=== PATIENT | female | born 1990 | race Hispanic/Latino ===

== ENCOUNTER 2021-08-18 11:35 | Emergency (ER) | payer BC, SELFPAY ==
[2021-08-18 11:37] VITALS: BP 133/94; PULSE 79; RESP 17; TEMP 36.6; O2SAT 99
--- NOTE | 2021-08-18 12:39 | ED.FEMALEGU ---
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 Patient states that she has had milky white foul-smelling vaginal discharge for 3 days accompanied with pelvic discomfort. Denies dysuria or abdominal pain. Denies fever. Denies back pain. Last menstrual cycle was August 01, she relates to having 2 over the last month. No concerns over STDs. Related Data Allergies Allergy/AdvReac Type Severity Reaction Status Date / Time No Known Allergies Allergy Verified 08/18/21 11:41 Review of Systems Review of Systems: CONSTITUTIONAL: Denies fever, chills, or sweats. EYES: Denies visual changes, redness, or discharge. ENT: Denies rhinorrhea, congestion, sore throat, or otalgia. CARDIOVASCULAR: Denies chest pain, palpitations, or edema. RESPIRATORY: Denies cough or dyspnea. GASTROINTESTINAL: Denies abdominal pain, nausea, vomiting, or diarrhea. GENITOURINARY: Reports vaginal discharge SKIN: Denies rash or itching. MUSCULOSKELETAL: Denies back pain, joint pain, or myalgia. NEUROLOGIC: Denies headache, numbness, dizziness, or weakness. PSYCHIATRIC: Denies anxiety or depression. Exam Narrative: GENERAL: Well-appearing, well-nourished, no physical limitations, and in no acute distress. HEAD: Normocephalic, atraumatic. EYES: Conjunctivae normal, PERRLA and EOMI. CHEST: Clear to auscultation. No respiratory distress. No wheezes rales or rhonchi. No tenderness. HEART: Regular rate and rhythm. No murmur heard. Normal peripheral pulses. ABDOMEN: Soft, , nondistended, normal active bowel sounds. : Normal external female exam, lesions masses or rashes on the external exam. Moderate amount of milky white discharge. Cervical os is closed. No adnexal tenderness, no cervical motion tenderness BACK: No CVA tenderness; No cervical/thoracic/lumbar tenderness, step-offs, bony abnormality; FROM EXTREMITIES: Normal range of motion. No edema. No clubbing or cyanosis SKIN: Warm, dry, no rash. No noted wounds NEURO: No focal deficits. Alert and oriented x3. MAEW. CN's II-XI intact bilaterally, normal gait PSYCH: Cooperative. Normal mood and affect. Course Vital Signs Vital signs: Vital Signs Temperature 36.6 C 08/18/21 11:37 Pulse Rate 79 08/18/21 11:37 Respiratory Rate 17 08/18/21 11:37 Blood Pressure 133/94 H 08/18/21 11:37 Pulse Oximetry 99 08/18/21 11:37 Oxygen Delivery Room Air 08/18/21 11:37 Temperature 36.6 C 08/18/21 11:37 Pulse Rate 79 08/18/21 11:37 Respiratory Rate 17 08/18/21 11:37 Blood Pressure 133/94 H 08/18/21 11:37 Pulse Oximetry 99 08/18/21 11:37 Oxygen Delivery Room Air 08/18/21 11:37 MDM - Female Genitourinary Lab Data Result diagrams: 08/18/21 12:49 Labs: Lab Results 08/18/21 08/18/21 Range/Units 12:45 12:49 WBC 9.8 (4.5-10.0) K/mm3 RBC 4.88 (4.2-5.4) M/mm3 Hgb 14.3 (12.0-15.0) g/dL Hct 43.9 (37.0-47.0) % MCV 90.0 (80-100) fl MCH 29.3 (26-34) pg MCHC 32.6 (32-36) g/dl RDW 13.0 (11.5-14.5) % Plt Count 332 (150-375) k/mm3 MPV 11.0 H (7.4-10.4) fl Immature Gran % (Auto) 0.4 (0-0.5) % Neut % (Auto) 67.0 (45.5-73.1) % Lymph % (Auto) 20.4 (18.3-44.2) % [place] % (Auto) 8.2 (2.6-8.5) % Eos % (Auto) 3.3 (0-4.4) % Baso % (Auto) 0.7 (0.2-1.2) % Lymph # (Auto) 1.99 (0.9-3.2) K/mm3 [place] # (Auto) 0.8 H (0.1-0.6) K/mm3 Eos # (Auto) 0.3 (0-0.3) K/mm3 Baso # (Auto) 0.1 (0.0-0.1) K/mm3 Abs Immat Gran (auto) 0.04 H (0.00-0.031) K/mm3 Absolute Neuts (auto) 6.5 (1.3-6.7) K/mm3 Absolute Nucleated RBC 0.0 (0.0-0.012) K/mm3 Nucleated RBC % 0.0 (0.0-0.2) % Urine Color Yellow (Yellow) Urine Appearance Clear (Clear) Urine pH
[2021-08-18 13:11] LABS: Basophils Absolute Auto 0.1 K/mm3 (0.0-0.1); Basophils Percent Auto 0.7 % (0.2-1.2); Eosinophils Absolute Auto 0.3 K/mm3 (0-0.3); Eosinophils Percent Auto 3.3 % (0-4.4); Hematocrit 43.9 % (37.0-47.0); Hemoglobin 14.3 g/dL (12.0-15.0); Immature Granulocyte Absolute 0.04 K/mm3 (0.00-0.031); Immature Granulocyte Percent A 0.4 % (0-0.5); Lymphocytes Absolute Auto 1.99 K/mm3 (0.9-3.2); Lymphocytes Percent Auto 20.4 % (18.3-44.2); Mean Corpuscular HGB Conc 32.6 g/dl (32-36); Mean Corpuscular Hemoglobin 29.3 pg (26-34); Monocytes Absolute Auto 0.8 K/mm3 (0.1-0.6); Monocytes Percent Auto 8.2 % (2.6-8.5); Neutrophils Absolute Auto 6.5 K/mm3 (1.3-6.7); Platelet Count Result 332 k/mm3 (150-375); Red Blood Count 4.88 M/mm3 (4.2-5.4); White Blood Count 9.8 K/mm3 (4.5-10.0)
[2021-08-18 13:17] LABS: Add Urine Microscopic? NO; Appearance Urine Clear (Clear); Bilirubin Urine Negative (Negative); Blood Urine Negative (Negative); Color Urine Yellow (Yellow); Glucose Urine UA Negative (Negative); Ketones Urine Negative (Negative); Leukocyte Esterase Ur Negative LEU/UL (Negative); Nitrate Urine Negative (Negative); Protein Urine Negative (Negative); Specific Grav Ur 1.025 (1.001-1.035); Urobilinogen Urine 0.2 mg/dL (<2.0); pH Urine 5.5 (5.0-9.0)
--- NOTE | 2021-08-18 13:44 | PC.NURSE ---
insurance writer accompanied provider with pelvic exam
[2021-08-18 14:23] VITALS: PULSE 74; RESP 16; O2SAT 99
== END 2021-08-18 14:24 | disposition home or self-care (01) ==
PROVIDERS: Emergency Provider Nurse Practitioner Family
DX: N76.0 Acute vaginitis (principal)
CPT/HCPCS: 36415; 81003; 85025; 87070; 87491; 87591; 87808; 99284

== ENCOUNTER 2021-10-31 16:08 | Observation (INO) | payer BC, SELFPAY ==
[2021-10-31] VITALS (19 sets, daily range): BP systolic 124–139; BP diastolic 80–93; PULSE 78–123; RESP 14–19; TEMP 36.8–36.9; O2SAT 99–100
--- NOTE | ~2021-10-31 | US_ITS ---
US OB <= 14 weeks fetus DATE: 10/31/2021 21:12 INDICATION: Vaginal bleeding, spontaneous at 10 weeks TECHNIQUE: Real-time and color flow imaging via transabdominal approach COMPARISON: None FINDINGS: The uterus measures approximately 7.8 cm vertical and 5 cm AP dimension. The central endome trial echo complex measures up to 16 mm AP dimension, with prominent surrounding hyper vascularity on color flow imaging. No gestational sac is identified. Findings are consistent with retained products of conception. The ovaries appear normal, with vascular flow. No pelvic mass lesion or abnormal free pelvic fluid collection is noted. IMPRESSION: Retained products of conception Reviewed, dictated and finalized at [facility]. Reviewed, dictated and finalized at [facility].
--- NOTE | 2021-10-31 18:56 | ED.FEMALEGU ---
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 Patient is a . She does not have an OB currently. Reports she was about 10 weeks and started bleeding. She was seen at [facility] Tuesday of this week. She was told she was having a miscarriage. Reports she was given a pill to expel the rest of the products of conception. She presents today for continued bleeding. Denies fever or vomiting. Related Data Home Medications Medication Instructions Recorded Confirmed No Home Medications 11/01/21 11/01/21 Allergies Allergy/AdvReac Type Severity Reaction Status Date / Time No Known Allergies Allergy Verified 08/18/21 11:41 Review of Systems Review of Systems: CONSTITUTIONAL: Denies fever GASTROINTESTINAL: Denies vomiting GENITOURINARY: Denies dysuria NEUROLOGIC: Reports generalized weakness. All systems reviewed & are unremarkable except as noted in HPI and below PMFSH Past Medical History Medical History (Updated 11/01/21 @ 14:36 by Ce Meza MD) No active medical problems Family History Family History (Updated 11/01/21 @ 01:09 by Gloria Osman RN) Other Unknown family medical history Social History Social History (Updated 10/31/21 @ 19:02 by Brissa Vann PA-C) Smoking status: Never smoker Alcohol intake: never Substance use: unknown Spiritual care concerns: No Exam Narrative: GENERAL: Well-appearing, well-nourished, and in no acute distress. HEAD: Normocephalic, atraumatic. EYES: EOMI. ENT: Nares clear, no rhinorrhea or epistaxis. Mucous membranes moist. Oropharynx without tonsillar hypertrophy exudate or other lesions. CHEST: Clear to auscultation. No respiratory distress. No wheezes rales or rhonchi HEART: Regular rate and rhythm. No murmur heard. Normal peripheral pulses. ABDOMEN: Soft, nontender, nondistended, normal active bowel sounds. EXTREMITIES: Normal range of motion. No edema. SKIN: Warm, dry, no rash. NEURO: No focal deficits. Alert and oriented x3. PSYCH: Normal mood and affect PELVIC: There is tissue noted in the vaginal vault. This was removed with ring forceps. Small amount of bleeding noted in the vaginal vault. Cervix is open. Course Consultations Consultation #1: Spoke with Dr. Powell about patient and work-up. Patient will be admitted for further evaluation and management Date: 10/31/21 Vital Signs Vital signs: Vital Signs Temperature 98.2 F 10/31/21 16:10 Pulse Rate 123 H 10/31/21 16:10 Respiratory Rate 16 10/31/21 16:10 Blood Pressure 129/88 10/31/21 16:10 Pulse Oximetry 100 10/31/21 16:10 Oxygen Delivery Room Air 10/31/21 16:10 Temperature 97.8 F 11/01/21 18:05 Pulse Rate 76 11/01/21 18:05 Respiratory Rate 16 11/01/21 18:05 Blood Pressure 134/90 11/01/21 18:05 Pulse Oximetry 100 11/01/21 18:05 Oxygen Delivery Room Air 11/01/21 15:22 MDM - Female Genitourinary MDM Narrative Medical decision making narrative: Patient presents to the emergency department for continued bleeding and generalized weakness. Reportedly was seen earlier in the week at another ER. Was told she was having a miscarriage and said she was given a pill to expel products of conception. She has had heavy bleeding since. Reports she started to feel weak and lightheaded which prompted her to be seen. Her vitals are stable. She was tachycardic upon arrival, this had normalized before any intervention. CBC shows normocytic anemia with hemoglobin of 5.4 and hematocrit of 16.7. Metabolic panel without concerning findings. UA without evidence of infection. Patient is O+.
[2021-10-31 19:29] LABS: Appearance Urine Slightly Cloudy (Clear); Basophils Percent Auto 0.6 % (0.2-1.2); Bilirubin Urine Negative (Negative); Blood Urine 2+ (Negative); Color Urine Yellow (Yellow); Eosinophils Absolute Auto 0.1 K/mm3 (0-0.3); Eosinophils Percent Auto 1.8 % (0-4.4); Glucose Urine UA Negative (Negative); Immature Granulocyte Absolute 0.02 K/mm3 (0.00-0.031); Immature Granulocyte Percent A 0.3 % (0-0.5); Ketones Urine Negative (Negative); Leukocyte Esterase Ur Negative LEU/UL (Negative); Lymphocytes Absolute Auto 2.01 K/mm3 (0.9-3.2); Lymphocytes Percent Auto 28.4 % (18.3-44.2); Mean Corpuscular HGB Conc 32.3 g/dl (32-36); Mean Corpuscular Hemoglobin 30.2 pg (26-34); Mean Corpuscular Volume 93.3 fl (80-100); Mean Platelet Volume 10.5 fl (7.4-10.4); Monocytes Absolute Auto 0.4 K/mm3 (0.1-0.6); Monocytes Percent Auto 5.9 % (2.6-8.5); Neutrophils Absolute Auto 4.5 K/mm3 (1.3-6.7); Nitrate Urine Negative (Negative); Platelet Count Result 166 k/mm3 (150-375); Protein Urine Negative (Negative); Red Blood Count 1.79 M/mm3 (4.2-5.4); Red Cell Distribution Width 13.5 % (11.5-14.5); Specific Grav Ur >= 1.030 (1.001-1.035); Urobilinogen Urine 0.2 mg/dL (<2.0); White Blood Count 7.1 K/mm3 (4.5-10.0)
[2021-10-31 19:34] LABS: Mucus Urine Rare /lpf; RBC Urine >75 /hpf (0-2); Squamous Epithelial Cell Urine Moderate /hpf (Few); WBC Urine 0-3 /hpf
[2021-10-31 19:35] LABS: Hemoglobin 5.4 g/dL (12.0-15.0)
[2021-10-31 19:36] LABS: Add Urine Microscopic? YES; Hematocrit 16.7 % (37.0-47.0)
[2021-10-31 19:44] LABS: Alanine Aminotransferase 14 U/L (6-35); Alkaline Phosphatase 60 U/L (38-126); Anion Gap 5 mmol/L (8-16); Aspartate Amino Transferase 19 U/L (14-36); Bilirubin,Total < 0.1 mg/dL (0.2-1.3); Blood Urea Nitrogen 14 mg/dL (7-17); Calcium 7.6 mg/dL (8.4-10.2); Carbon Dioxide 26 mmol/L (22-30); Chloride 106 mmol/L (98-107); Estimated CRCL calculation 102 ml/min; Estimated Glomerular Filt Rate > 60; Glucose 104 mg/dL (65-110); Potassium 3.7 mmol/L (3.4-5.0); Sodium 137 mmol/L (137-145)
--- NOTE | 2021-10-31 20:11 | PC.NURSE ---
Patient states she is unsure of how far along she was, she states she is between 10-15 weeks
--- NOTE | 2021-10-31 21:39 | PC.NURSE ---
blood consent signed and in chart
[2021-10-31] MEDS: SODIUM CHLORIDE 0.9% IV 250 ML 30 ML IV CONT (21:40)
--- NOTE | 2021-10-31 21:59 | PC.NURSE ---
patient states she is feeling better at this time.
--- NOTE | 2021-10-31 23:51 | PC.NURSE ---
Per pt's RN, family wants hospital to dispose of products of conception. Visualization Developer called @ [phone]. MTS called @ [phone]. Reference # [id number].
[2021-11-01] VITALS (21 sets, daily range): BP systolic 117–137; BP diastolic 64–90; PULSE 66–98; RESP 15–20; TEMP 36.4–37.2; O2SAT 98–100; BMI 26.0
--- NOTE | 2021-11-01 | ADMGEN ---
This patient, Chris Kat, was admitted to 2 Medical Room 256-. Patient/family oriented to hospital policies and general routines including ID bracelet, bed and alarms, visiting hours, pain management, procedures, bathroom and other care routines, personal items, smoking policy, room service/diet, and visiting hours. Information on how to activate the Rapid Response Team has been discussed. Patient/Family are encouraged to report perceived risks to care and to ask questions if they do not understand what they are told or what they should do.
--- NOTE | 2021-11-01 00:17 | PC.NURSE ---
Patient stated she wanted the hospital to dispose of all products. In Store Marketing Associate was in use at this time. Patient signed paperwork for [employer] and wants to be contacted.
[2021-11-01 04:29] LABS: Basophils Absolute Auto 0.1 K/mm3 (0.0-0.1); Basophils Percent Auto 0.8 % (0.2-1.2); Eosinophils Absolute Auto 0.2 K/mm3 (0-0.3); Hematocrit 22.5 % (37.0-47.0); Hemoglobin 7.4 g/dL (12.0-15.0); Immature Granulocyte Absolute 0.03 K/mm3 (0.00-0.031); Immature Granulocyte Percent A 0.5 % (0-0.5); Lymphocytes Absolute Auto 1.86 K/mm3 (0.9-3.2); Lymphocytes Percent Auto 30.5 % (18.3-44.2); Mean Corpuscular HGB Conc 32.9 g/dl (32-36); Mean Corpuscular Hemoglobin 29.7 pg (26-34); Mean Corpuscular Volume 90.4 fl (80-100); Mean Platelet Volume 10.4 fl (7.4-10.4); Monocytes Absolute Auto 0.4 K/mm3 (0.1-0.6); Monocytes Percent Auto 6.1 % (2.6-8.5); Neutrophils Absolute Auto 3.6 K/mm3 (1.3-6.7); Neutrophils Percent Auto 59.1 % (45.5-73.1); Platelet Count Result 151 k/mm3 (150-375); Red Blood Count 2.49 M/mm3 (4.2-5.4); Red Cell Distribution Width 13.6 % (11.5-14.5); White Blood Count 6.1 K/mm3 (4.5-10.0)
--- NOTE | 2021-11-01 10:08 | PM.IMHP ---
H&P: HPI History of Present Illness Date/Time: 11/01/21 10:08 Chief Complaint: bleeding, miscarriage Narrative: Chris is a 31yo who presented to ED overnight with very heavy bleeding, headache, and dizziness. She was diagnosed with sab a week ago, given pills to help it pass, but started bleeding very heavily. Hgb on admission was 5. She received 2 units blood. Bleeding now is light unless she gets up to bathroom and then it picks up again and she passes clots. Hgb post blood was 7.4 at 4am. US showed retained POC. Her history is significant for only 2 CS. She is resting comfortably this morning and is NPO. Review of Systems Review of Systems: All systems reviewed & are unremarkable except as noted in HPI and below PMFSH Past Medical History Medical History (Updated 10/31/21 @ 23:25 by Brissa Vann PA-C) No active medical problems Family History Family History (Updated 11/01/21 @ 01:09 by Gloria Osman RN) Other Unknown family medical history Social History Social History (Updated 10/31/21 @ 19:02 by Brissa Vann PA-C) Smoking status: Never smoker Alcohol intake: never Substance use: unknown Spiritual care concerns: No Meds Home Medications and Allergies Home Medications Medication Instructions Recorded Confirmed Type No Home Medications 11/01/21 11/01/21 History Allergies Allergy/AdvReac Type Severity Reaction Status Date / Time No Known Allergies Allergy Verified 08/18/21 11:41 Vital Signs Vital Signs - 24 hr 10/31/21 16:10 10/31/21 21:31 10/31/21 21:27 Temperature 98.2 F 98.4 F Pulse Rate 123 H 92 90 Respiratory Rate 16 17 18 Blood Pressure 129/88 133/80 133/80 Pulse Oximetry 100 100 100 Oxygen Delivery Room Air 10/31/21 21:42 10/31/21 21:45 10/31/21 21:46 Temperature Pulse Rate 92 89 91 Respiratory Rate 17 16 16 Blood Pressure 124/81 Pulse Oximetry 99 100 100 Oxygen Delivery 10/31/21 21:48 10/31/21 22:00 10/31/21 22:01 Temperature 98.2 F Pulse Rate 87 91 84 Respiratory Rate 17 16 16 Blood Pressure 124/81 133/85 Pulse Oximetry 100 100 100 Oxygen Delivery 10/31/21 22:25 10/31/21 22:30 10/31/21 22:31 Temperature Pulse Rate 85 94 82 Respiratory Rate 15 18 14 Blood Pressure 139/80 Pulse Oximetry 100 100 99 Oxygen Delivery 10/31/21 22:48 11/01/21 00:38 11/01/21 00:48 Temperature 98.3 F 98 F Pulse Rate 93 80 86 Respiratory Rate 16 20 Blood Pressure 128/90 127/77 Pulse Oximetry 99 100 Oxygen Delivery 11/01/21 00:55 10/31/21 22:45 10/31/21 22:46 Temperature 99 F Pulse Rate 86 93 83 Respiratory Rate 20 19 18 Blood Pressure 126/85 127/93 H Pulse Oximetry 100 100 100 Oxygen Delivery 10/31/21 23:21 10/31/21 23:39 10/31/21 23:45 Temperature Pulse Rate 88 79 78 Respiratory Rate 18 15 15 Blood Pressure 133/81 Pulse Oximetry 100 100 100 Oxygen Delivery 10/31/21 23:46 11/01/21 00:00 11/01/21 00:00 Temperature 97.7 F 97.7 F Pulse Rate 95 83 83 Respiratory Rate 15 17 17 Blood Pressure 128/78 128/78 Pulse Oximetry 100 100 100 Oxygen Delivery 11/01/21 01:55 11/01/21 02:55 11/01/21 03:29 Temperature 97.8 F 97.5 F L 97.6 F Pulse Rate 88 87 66 Respiratory Rate 18 17 17 Blood Pressure 118/70 127/73 119/69 Pulse Oximetry 100 100 100 Oxygen Delivery 11/01/21 03:30 11/01/21 04:00 11/01/21 08:00 Temperature 97.6 F Pulse Rate 66 70 Respiratory Rate 17 Blood Pressure 119/69 Pulse Oximetry 100 Oxygen Delivery Room Air Exam Const: General: no acute distress Resp: Effort & Inspection: normal respiratory effort Auscultation: clear to auscultation bilaterally Cardio: Rate: regular rate Rhythm: regular rhythm GI: GI Palp: Yes Soft to palpation Extrem: General: normal to inspection H&P: Results Labs Labs: Short CBC 10/31/21 11/01/21 Range/Units 19:21 04:25 WBC 7.1 6.1 (4.5-10.0) K/mm3 Hgb 5.4 L* D 7
[2021-11-01 12:36] LABS: Hematocrit 24.8 % (37.0-47.0); Hemoglobin 8.2 g/dL (12.0-15.0)
--- NOTE | 2021-11-01 13:52 | WPDANESEPPF ---
Anes - Initial Pre Proc Eval Procedure: Operation Date: 11/01/21 14:00 Proposed Procedures p D&C Suction and Sharp - Ce Meza MD Date/Time: 11/01/21 13:52 Surgeon: Sea Powell MD Pre Op Diagnosis: retained products of conception, anemia Patient Data Age: 31 Gender: F Height: 1.7 m Weight: 75.5 kg Last Vital Signs Temp 36.6 C 11/01/21 11:45 Pulse 77 11/01/21 12:00 Resp 16 11/01/21 11:45 BP 124/72 11/01/21 11:45 Pulse Ox 100 11/01/21 11:45 O2 Del Method Room Air 11/01/21 08:00 Allergies Allergy/AdvReac Type Severity Reaction Status Date / Time No Known Allergies Allergy Verified 08/18/21 11:41 Home Medications Medication Instructions Recorded Confirmed Type No Home Medications 11/01/21 11/01/21 History Laboratory Tests 10/31/21 10/31/21 10/31/21 19:21 19:21 19:21 WBC 7.1 K/mm3 K/mm3 (4.5-10.0) RBC 1.79 M/mm3 L M/mm3 (4.2-5.4) Hgb 5.4 g/dL L* D g/dL (12.0-15.0) Hct 16.7 % L* % (37.0-47.0) MCV 93.3 fl fl (80-100) MCH 30.2 pg pg (26-34) MCHC 32.3 g/dl g/dl (32-36) RDW 13.5 % % (11.5-14.5) Plt Count 166 k/mm3 k/mm3 (150-375) MPV 10.5 fl H fl (7.4-10.4) Immature Gran % (Auto) 0.3 % % (0-0.5) Neut % (Auto) 63.0 % % (45.5-73.1) Lymph % (Auto) 28.4 % % (18.3-44.2) [place] % (Auto) 5.9 % % (2.6-8.5) Eos % (Auto) 1.8 % % (0-4.4) Baso % (Auto) 0.6 % % (0.2-1.2) Lymph # (Auto) 2.01 K/mm3 K/mm3 (0.9-3.2) [place] # (Auto) 0.4 K/mm3 K/mm3 (0.1-0.6) Eos # (Auto) 0.1 K/mm3 K/mm3 (0-0.3) Baso # (Auto) 0.0 K/mm3 K/mm3 (0.0-0.1) Abs Immat Gran (auto) 0.02 K/mm3 K/mm3 (0.00-0.031) Absolute Neuts (auto) 4.5 K/mm3 K/mm3 (1.3-6.7) Absolute Nucleated RBC 0.0 K/mm3 K/mm3 (0.0-0.012) Nucleated RBC % 0.0 % % (0.0-0.2) Sodium Potassium Chloride Carbon Dioxide Anion Gap BUN Creatinine Estim Creat Clear Calc Estimated GFR Glucose Calcium Total Bilirubin AST ALT Alkaline Phosphatase Total Protein Albumin Beta HCG, Quant 9967.70 mIU/ML mIU/ML Urine Color Urine Appearance Urine pH Ur Specific [place] Urine Protein Urine Glucose (UA) Urine Ketones Ur Blood (Man) Urine Nitrate Urine Bilirubin Urine Urobilinogen Leukocyte Esterase Rfl Urine RBC Urine WBC Ur Squamous Epith Cells Urine Mucus Blood Type O Positive Antibody Screen Negative Screen TNP Baby's Blood Type Not Reportable Baby's PATI Not Reportable Doses of RhIg Required 0 Crossmatch See Detail 10/31/21 10/31/21 11/01/21 19:21 19:21 04:25 WBC 6.1 K/mm3 K/mm3 (4.5-10.0) RBC 2.49 M/mm3 L M/mm3 (4.2-5.4) Hgb 7.4 g/dL L g/dL (12.0-15.0) Hct 22.5 % L % (37.0-47.0) MCV 90.4 fl fl (80-100) MCH 29.7 pg pg (26-34) MCHC 32.9 g/dl g/dl (32-36) RDW 13.6 % % (11.5-14.5) Plt Count 151 k/mm3 k/mm3 (150-375) MPV 10.4 fl fl (7.4-10.4) Immature Gran % (Auto) 0.5 % % (0-0.5) Neut % (Auto) 59.1 % % (45.5-73.1) Lymph % (Auto) 30.5 % % (18.3-44.2) [place] % (Auto) 6.1 % % (2.6-8.5) Eos % (Auto) 3.0 % % (0-4.4) Baso % (Auto) 0.8 % % (0.2-1.2) Lymph # (Auto) 1.86 K/mm3 K/mm3 (0.
--- NOTE | 2021-11-01 13:56 | WPDHPUPDATE1 ---
History and Physical Update Update Date/Time: 11/01/21 13:56 History and Physical has been reviewed, including an updated exam of the patient. There are NO changes in the patient's condition. Risks, benefits, and alternatives have been discussed and questions answered. Patient agrees to proceed with procedure.
[2021-11-01] MEDS: LACTATED RINGERS 1,000 ML 30 ML IV CONT (14:10)
--- NOTE | 2021-11-01 14:32 | W.PM.PROC2 ---
Procedure Note - Detailed Date of Procedure 11/01/21 Pre-op Diagnosis retained products of conception, anemia Post-op Diagnosis Same Procedure Performed suction D and C Surgeon Ce Meza MD Anesthesia MAC Indications hemorrhage down to hemoglobin of 5, retained POC on US Findings uterus sounded to 9, copious POC removed Description of Procedure The patient was taken to the OR and placed in supine position in dorsal lithotomy. She received MAC anesthesia and doxycycline. She was prepped and draped in normal fashion. A speculum was placed and the cervix was grasped with a single tooth tenaculum. A paracervical block was placed with 10cc 0.25% marcaine with epinephrine. The cervix was sequentially dilated to 8 silverman. The suction was tested and then the suction catheter was inserted into the uterine cavity. Several passes were made until no further products of conception were obtained. The tenaculum was removed and hemostasis was obtained with pressure and monsel's solution. The speculum was removed. The patient tolerated the procedure well and was taken to the recovery room in stable condition. Estimated Blood Loss 20 Drains No Packing No Pathology Yes Complications No immediate complications Condition Stable Disposition Same day
--- NOTE | 2021-11-01 14:35 | PM.DS ---
DS: Admitting Diagnosis Discharge Date 11/01/21 Admitting Diagnosis anemia, incomplete DS: Discharge Diagnosis Discharge Diagnosis (1) Anemia: Qualifiers: Anemia type: unspecified type Qualified Code(s): D64.9 - Anemia, unspecified Code(s): D64.9 - Anemia, unspecified Status: Acute (2) Complete : Code(s): O03.9 - Complete or unspecified spontaneous without complication Status: Acute DS: Summary Hospital Course Hospital Course: Chris was admitted with incomplete and hemorrhage with a hemoglobin of 5. She received 2 units of blood. She had a D and C for retained products of conception. her hemoglobin improved to 8 and her bleeding minimalized. She was discharged home in stable condition on hospital day 1. Status at Discharge Functional status at discharge: independent ambulation Time Spent with Patient Time attestation: Total time spent providing and/or coordinating discharge services: Time spent: Less than 30 minutes Exam Const: General: comfortable and no acute distress Resp: Effort & Inspection: normal respiratory effort Cardio: Rate: regular rate Rhythm: regular rhythm GI: GI Palp: Yes Soft to palpation Auscultation: normal bowel sounds : External Female Exam: normal external appearance Skin: General skin exam: normal color and no rashes or lesions noted Neuro: General: gait normal Extrem: General: normal to inspection Psych: Mental Status: mental status grossly normal Affect: normal affect DS: Data Data Completed and Pending Pending studies at discharge: Pending at discharge 10/31/21 21:23 Consult to Pathologist [PTH] Routine 11/01/21 14:16 Surgical [PTH] Routine Labs on day of discharge: Labs from last 24 hours 11/01/21 11/01/21 10/31/21 12:19 04:25 19:21 WBC 6.1 RBC 2.49 L Hgb 8.2 L 7.4 L Hct 24.8 L 22.5 L MCV 90.4 MCH 29.7 MCHC 32.9 RDW 13.6 Plt Count 151 MPV 10.4 Immature Gran % (Auto) 0.5 Neut % (Auto) 59.1 Lymph % (Auto) 30.5 [place] % (Auto) 6.1 Eos % (Auto) 3.0 Baso % (Auto) 0.8 Lymph # (Auto) 1.86 [place] # (Auto) 0.4 Eos # (Auto) 0.2 Baso # (Auto) 0.1 Abs Immat Gran (auto) 0.03 Absolute Neuts (auto) 3.6 Absolute Nucleated RBC 0.0 Nucleated RBC % 0.0 Sodium Potassium Chloride Carbon Dioxide Anion Gap BUN Creatinine Estim Creat Clear Calc Estimated GFR Glucose Calcium Total Bilirubin AST ALT Alkaline Phosphatase Total Protein Albumin Beta HCG, Quant Urine Color Yellow Urine Appearance Slightly cloudy Urine pH 6.0 Ur Specific [employer] >= 1.030 Urine Protein Negative Urine Glucose (UA) Negative Urine Ketones Negative Ur Blood (Man) 2+ H Urine Nitrate Negative Urine Bilirubin Negative Urine Urobilinogen 0.2 Leukocyte Esterase Rfl Negative Urine RBC >75 H Urine WBC 0-3 Ur Squamous Epith Cells Moderate H Urine Mucus Rare Blood Type Antibody Screen Screen Baby's Blood Type Baby's PATI Doses of RhIg Required Crossmatch 10/31/21 10/31/21 10/31/21 19:21 19:21 19:21 WBC RBC Hgb Hct MCV MCH MCHC RDW Plt Count MPV Immature Gran % (Auto) Neut % (Auto) Lymph % (Auto) [place] % (Auto) Eos % (Auto) Baso % (Auto) Lymph # (Auto) [place] # (Auto) Eos # (Auto) Baso # (Auto) Abs Immat Gran (auto) Absolute Neuts (auto) Absolute Nucleated RBC Nucleated RBC % Sodium 137 Potassium 3.7 Chloride 106 Carbon Dioxide 26 Anion Gap 5 L BUN 14 Creatinine 0.60 L Estim Creat Clear Calc 102 Estimated GFR > 60 Glucose 104 Calcium 7.6 L Total Bilirubin < 0.1 L AST 19 ALT 14 Alkaline Phosphatase 60 Total Protein 6.0 L Albumin 3.0 L Beta HCG, Quant 9967.
--- NOTE | 2021-11-01 15:02 | SUR.PHASEI ---
1500 use of stratus senior svp ruby #[id number]
== END 2021-11-01 18:53 | disposition home or self-care (01) ==
LOC: ANHED 19:57 → ANH2MED 11-01 00:25
PROVIDERS: Physician Assistant; Admitting Provider Obstetrics & Gynecology; Emergency Provider Emergency Medicine; Visit Provider Obstetrics & Gynecology
PROC: (CPT 59812; principal; 2021-11-01 14:00)
DX: O03.4 Incomplete spontaneous abortion without complication (principal); Z3A.10 10 weeks gestation of pregnancy
CPT/HCPCS: 59812; 36415; 36430; 76801; 80053; 81001; 81025; 84702; 85014; 85018; 85025; 85461; 86920; 88305; 96360; 99285; A9270; G0378; G0379; J2250; J2704; J3010; J7050; J7120; P9016

== ENCOUNTER 2024-01-02 12:40 | Emergency (ER) | payer OTHER, SELFPAY ==
--- NOTE | ~2024-01-02 | XR_ITS ---
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 RESULT: Lines, tubes, and devices: None. Lungs and pleura: Clear. Cardiomediastinal silhouette: Normal. Other: No acute osseous or upper abdominal finding. IMPRESSION: No acute cardiopulmonary process. Reviewed, dictated and finalized at location K. ER SERVICE ASSISTANT
[2024-01-02 12:53] VITALS: BP 127/76; PULSE 86; RESP 16; TEMP 36.4; O2SAT 99
--- NOTE | 2024-01-02 12:54 | ECG_ITS ---
Test Date: 2024-01-02 12:59:28 Measurements Intervals [place] Rate: 87 P: 64 LA: 138 QRS: 48 QRSD: 102 T: 30 QT: 326 QTc: 392 Interpretive Statements SINUS RHYTHM POSSIBLE LEFT ATRIAL ENLARGEMENT DELAYED PRECORDIAL R/S TRANSITION BORDERLINE T WAVE ABNORMALITY- INFERIOR LEADS BASELINE ARTIFACT- I, II, III, AVR, AVL, AVF, V1-V6 BORDERLINE ECG No previous ECG available for comparison Electronically Signed On 01-02-2024 13:04:[address]NA[address] by Zachariah Eldridge D.O.
--- NOTE | 2024-01-02 18:12 | ED.CHESTPAIN ---
HPI - Chest Pain General Chief Complaint: Chest Pain <SHERRI Carrera Last Filed: 01/02/24 18:52> Stated Complaint: chest pain <SHERRI Carrera Last Filed: 01/02/24 18:52> Time Seen by Provider: 01/02/24 18:29 <SHERRI Carrera Last Filed: 01/02/24 18:52> Focused HPI: Patient is a 33 y/o female who presents to the ED with c/o BRADY and CP. Patient is primarily [place]-speaking. [employer] consultant was utilized for assistance with translation. Patient reports she has been having intermittent episodes of dizziness, flushed sensation, headache, short of breath, pain in her L sided chest over the past 2 months. States sx's last for a few hours before resolving on their own, currently c/o BRADY and fatigue only. Denies current CP or SOB. Denies recent cough or cold sx's. Denies fevers, pain/swelling in BLE. Scheduled to see her PCP in February. GENERAL: Well-appearing, well-nourished, and in no acute distress. HEAD: Normocephalic, atraumatic. CHEST: Clear to auscultation. ?No respiratory distress. HEART: Regular rate and rhythm.? NEURO: ?Alert and oriented x3. Patient screened in triage and initial orders placed.? ?Additional care and disposition to be based upon?diagnostic testing and treatment. <SHERRI Carrera Last Filed: 01/02/24 18:52> Focused HPI: Patient is a 33 y/o female who presents to the ED with c/o BRDAY and CP. Patient is primarily [place]-speaking. [employer] consultant was utilized for assistance with translation. Patient reports she has been having intermittent episodes of dizziness, flushed sensation, headache, short of breath, pain in her L sided chest over the past 2 months. States sx's last for a few hours before resolving on their own, currently c/o BRADY and fatigue only. Denies current CP or SOB. Denies recent cough or cold sx's. Denies fevers, pain/swelling in BLE. Scheduled to see her PCP in February. GENERAL: Well-appearing, well-nourished, and in no acute distress. HEAD: Normocephalic, atraumatic. CHEST: Clear to auscultation. ?No respiratory distress. HEART: Regular rate and rhythm.? NEURO: ?Alert and oriented x3. Patient screened in triage and initial orders placed.? ?Additional care and disposition to be based upon?diagnostic testing and treatment. Acute triage assessment. Patient states that her symptoms started 1 week after she gave via approximately 5 months ago. Patient states that she has been to any emergency department and her PCP for these symptoms and all blood work and imaging results that were obtained were all normal and she was referred to a wax machine operator and she has an upcoming appointment on January 10. <Carlotta Messina MD - Last Filed: 01/02/24 21:47> Source: patient <SHERRI Carrera Last Filed: 01/02/24 18:52> Mode of arrival: ambulatory <Doris Vargas PA-C - Last Filed: 01/02/24 18:52> Limitations: no limitations <SHERRI Carrera Last Filed: 01/02/24 18:52> Related Data Home Medications: Home Medications Medication Instructions Recorded Confirmed No Home Medications 11/01/21 11/01/21 <Doris Vargas PA-C - Last Filed: 01/02/24 18:52> Allergies/Adverse Reactions: Allergies Allergy/AdvReac Type Severity Reaction Status Date / Time No Known Allergies Allergy Verified 08/18/21 11:41 <Doris Vargas PA-C - Last Filed: 01/02/24 18:52> Review of Systems Review of Systems: All systems are reviewed and are negative unless stated otherwise in the HPI. <Carlotta Messina MD - Last Filed: 01/02/24 21:47> PMFSH Past Medical History Medical History: Medical History No active medical problems <Doris Vargas PA-C - Last Filed: 01/02/24 18:52> Family History Family History: Family History Other Unknown family medical history <Doris Vargas PA-C - Last Filed: 01/02/24 18:52> Social History Social History: Social History Smoking status: Never smoker Alcohol intake: never Substance use: unknown Spiritual care concerns: No <Doris Vargas PA-C - Last Filed: 01/02/24 18:52> Exam Narrative: General: Alert, awake, afebrile, in no acute distress. HEENT: PERRL, no rhinorrhea, no post nasal drip, oropharynx clear. Neck: Trachea midline, no JVD, no lymphadenopathy. Cardiovascular: Regular rate and rhythm, no murmurs, rubs or gallops, no peripheral edema. Respiratory: Clear to auscultation bilaterally, no tachypnea, no wheezing, no rhonchi, no rubs, no respiratory distress. Abdomen: Soft, nontender, nondistended, no rebound, no guarding, no peritoneal signs. Musculoskeletal: No joint swelling or deformity, normal muscle tone. Skin: No rashes or petechia, no signs of infection. Psychiatric: Alert and oriented, normal behavior and judgment for situation. Neurological: Alert and oriented to person, place, and time. Follows all commands. No focal deficits, speech is clear and fluent. <Carlotta Messina MD - Last Filed: 01/02/24 21:47> Course Vital Signs Vital signs: Vital Signs Temperature 97.6 F 01/02/24 12:53 Pulse Rate 86 01/02/24 12:53 Respiratory Rate 16 01/02/24 12:53 Blood Pressure 127/76 01/02/24 12:53 Pulse Oximetry 99 01/02/24 12:53 Temperature 97.8 F 01/02/24 21:39 Pulse Rate 66 01/02/24 21:39 Respiratory Rate 13 01/02/24 21:39 Blood Pressure 135/106 H 01/02/24 21:39 Pulse Oximetry 97 01/02/24 21:39 Oxygen Delivery Room Air 01/02/24 20:24 <Doris Vargas PA-C - Last Filed: 01/02/24 18:52> Vital Signs Temperature 97.6 F 01/02/24 12:53 Pulse Rate 86 01/02/24 12:53 Respiratory Rate 16 01/02/24 12:53 Blood Pressure 127/76 01/02/24 12:53 Pulse Oximetry 99 01/02/24 12:53 Temperature 97.8 F 01/02/24 21:39 Pulse Rate 66 01/02/24 21:39 Respiratory Rate 13 01/02/24 21:39 Blood Pressure 135/106 H 01/02/24 21:39 Pulse Oximetry 97 01/02/24 21:39 Oxygen Delivery Room Air 01/02/24 20:24 <Carlotta Messina MD - Last Filed: 01/02/24 21:47> MDM - Chest Pain MDM Narrative Medical decision making narrative: MSE by SANCHEZ in triage. <Doris Vargas PA-C - Last Filed: 01/02/24 18:52> MSE by SANCHEZ in triage. The patient was evaluated by myself in the emergency department. History is obtained from patient who is an independent historian and physical exam was performed. External medical records were reviewed at this time. IV was established and pertinent tests were ordered. EKG was obtained which revealed sinus rhythm at a rate of 87 beats per minute. No ST changes, T wave inversions or evidence of acute ischemia. EKG was independently interpreted by me and is currently pending official cardiology read. Laboratory results obtained revealing no acute process. Troponin and D-dimer both negative. Imaging studies obtained included CXR which was independently interpreted by me revealing no acute cardiopulmonary process, which is pending final radiology interpretation. Differential diagnosis considerations include acute stress reaction, anxiety, dehydration, acute viral syndrome, infectious process such as pneumonia. Comorbidities impacting this visit include none. I have evaluated and discussed social determinants of health with the patient that could potentially impact subsequent diagnosis and treatment plans. On repeat assessment of the patient, reevaluation revealed that the patient is doing well and is in no acute distress. Patient symptoms have improved since she arrived to our emergency department. Repeat vital signs were all reviewed and noted to be stable. Differential diagnosis and treatment plan were discussed with the patient at bedside. Patient agrees with discussion and after shared medical decision making agrees with discharge. All questions were answered to the patient's satisfaction. Patient will follow up cardiology as scheduled for her upcoming appointment on January 10. She also has an appointment with her OBGYN on January 09. Patient was provided with strict return precautions and instructed to return to the emergency department if any new or worsening symptoms develop. The patient was discharged in stable condition. <Carlotta Messina MD - Last Filed: 01/02/24 21:47> Lab Data Result diagrams: 01/02/24 18:38 01/02/24 18:38 <Doris Vargas PA-C - Last Filed: 01/02/24 18:52> Labs: Lab Results 01/02/24 Range/Units 18:38 WBC 7.3 (4.5-10.0) K/mm3 RBC 4.86 (4.2-5.4) M/mm3 Hgb 14.6 D (12.0-15.0) g/dL Hct 42.7 (37.0-47.0) % MCV 87.9 (80-100) fl MCH 30.0 (26-34) pg MCHC 34.2 (32-36) g/dl RDW 12.5 (11.5-14.5) % Plt Count 300 D (150-375) k/mm3 MPV 10.6 H (7.4-10.4) fl Immature Gran % (Auto) 0.1 (0-0.5) % Neut % (Auto) 57.0 (45.5-73.1) % Lymph % (Auto) 29.4 (18.3-44.2) % [place] % (Auto) 7.5 (2.6-8.5) % Eos % (Auto) 4.9 H (0-4.4) % Baso % (Auto) 1.1 (0.2-1.2) % Lymph # (Auto) 2.16 (0.9-3.2) K/mm3 [place] # (Auto) 0.6 (0.1-0.6) K/mm3 Eos # (Auto) 0.4 H (0-0.3) K/mm3 Baso # (Auto) 0.1 (0.0-0.1) K/mm3 Abs Immat Gran (auto) 0.01 (0.00-0.031) K/mm3 Absolute Neuts (auto) 4.2 (1.3-6.7) K/mm3 Absolute Nucleated RBC 0.000 (0.0-0.012) K/mm3 Nucleated RBC % 0.0 (0.0-0.2) % PT 13.6 (11.1-14.7) Seconds INR 1.0 APTT 29.4 (22.3-36.8) Seconds D-Dimer < 0.27 (<0.48) ug/mL Sodium 136 L (137-145) mmol/L Potassium 4.0 (3.4-5.0) mmol/L Chloride 105 (98-107) mmol/L Carbon Dioxide 23 (22-30) mmol/L Anion Gap 8 (4-12) mmol/L BUN 16 (7-17) mg/dL Creatinine 0.60 L (0.7-1.0) mg/dL Estim Creat Clear Calc 104 ml/min Estimated GFR > 60 (59 - ) Glucose 92 (65-110) mg/dL Calcium 9.3 (8.4-10.2) mg/dL Total Bilirubin 0.4 (0.2-1.3) mg/dL AST 25 (14-36) U/L ALT 17 (6-35) U/L Alkaline Phosphatase 74 (38-126) U/L Troponin I < 0.012 (0.000-0.034) ng/mL Total Protein 9.0 H (6.3-8.2) g/dL Albumin 4.9 (3.5-5.1) g/dL <Doris Vargas PA-C - Last Filed: 01/02/24 18:52> Lab Results 01/02/24 Range/Units 18:38 WBC 7.3 (4.5-10.0) K/mm3 RBC 4.86 (4.2-5.4) M/mm3 Hgb 14.6 D (12.0-15.0) g/dL Hct 42.7 (37.0-47.0) % MCV 87.9 (80-100) fl MCH 30.0 (26-34) pg MCHC 34.2 (32-36) g/dl RDW 12.5 (11.5-14.5) % Plt Count 300 D (150-375) k/mm3 MPV 10.6 H (7.4-10.4) fl Immature Gran % (Auto) 0.1 (0-0.5) % Neut % (Auto) 57.0 (45.5-73.1) % Lymph % (Auto) 29.4 (18.3-44.2) % [place] % (Auto) 7.5 (2.6-8.5) % Eos % (Auto) 4.9 H (0-4.4) % Baso % (Auto) 1.1 (0.2-1.2) % Lymph # (Auto) 2.16 (0.9-3.2) K/mm3 [place] # (Auto) 0.6 (0.1-0.6) K/mm3 Eos # (Auto) 0.4 H (0-0.3) K/mm3 Baso # (Auto) 0.1 (0.0-0.1) K/mm3 Abs Immat Gran (auto) 0.01 (0.00-0.031) K/mm3 Absolute Neuts (auto) 4.2 (1.3-6.7) K/mm3 Absolute Nucleated RBC 0.000 (0.0-0.012) K/mm3 Nucleated RBC % 0.0 (0.0-0.2) % PT 13.6 (11.1-14.7) Seconds INR 1.0 APTT 29.4 (22.3-36.8) Seconds D-Dimer < 0.27 (<0.48) ug/mL Sodium 136 L (137-145) mmol/L Potassium 4.0 (3.4-5.0) mmol/L Chloride 105 (98-107) mmol/L Carbon Dioxide 23 (22-30) mmol/L Anion Gap 8 (4-12) mmol/L BUN 16 (7-17) mg/dL Creatinine 0.60 L (0.7-1.0) mg/dL Estim Creat Clear Calc 104 ml/min Estimated GFR > 60 (59 - ) Glucose 92 (65-110) mg/dL Calcium 9.3 (8.4-10.2) mg/dL Total Bilirubin 0.4 (0.2-1.3) mg/dL AST 25 (14-36) U/L ALT 17 (6-35) U/L Alkaline Phosphatase 74 (38-126) U/L Troponin I < 0.012 (0.000-0.034) ng/mL Total Protein 9.0 H (6.3-8.2) g/dL Albumin 4.9 (3.5-5.1) g/dL <Carlotta Messina MD - Last Filed: 01/02/24 21:47> Discharge Plan Discharge Clinical Impression: Palpitations <Doris Vargas PA-C - Last Filed: 01/02/24 18:52> Patient Disposition: Home, Self-Care <Doris Vargas PA-C - Last Filed: 01/02/24 18:52> Condition: Improved <Doris Vargas PA-C - Last Filed: 01/02/24 18:52> Instructions: Antibiotic Form, Heart Palpitations (DC) <Doris Vargas PA-C - Last Filed: 01/02/24 18:52> Additional Instructions: Please follow-up with your wax machine operator as scheduled for your upcoming appointment on January 10. You also instructed to follow-up with your family doctor and your OBGYN within the next week. Return to the emergency department if any new or worsening symptoms develop. <Doris Vargas PA-C - Last Filed: 01/02/24 18:52> Prescriptions: No Action No Home Medications <Doris Vargas PA-C - Last Filed: 01/02/24 18:52> Follow-up/Referrals: PHYSICIAN,ELECTRO MECHANIC [Primary Care Provider] - Gulshan Estrada MD [Physician] - 3 Days <Doris Vargas PA-C - Last Filed: 01/02/24 18:52> Time of Disposition: 21:09 <Doris Vargas PA-C - Last Filed: 01/02/24 18:52> 21:09 <Carlotta Messina MD - Last Filed: 01/02/24 21:47>
[2024-01-02 18:47] LABS: Basophils Absolute Auto 0.1 K/mm3 (0.0-0.1); Basophils Percent Auto 1.1 % (0.2-1.2); Eosinophils Absolute Auto 0.4 K/mm3 (0-0.3); Eosinophils Percent Auto 4.9 % (0-4.4); Hematocrit 42.7 % (37.0-47.0); Hemoglobin 14.6 g/dL (12.0-15.0); Immature Granulocyte Absolute 0.01 K/mm3 (0.00-0.031); Immature Granulocyte Percent A 0.1 % (0-0.5); Lymphocytes Absolute Auto 2.16 K/mm3 (0.9-3.2); Lymphocytes Percent Auto 29.4 % (18.3-44.2); Mean Corpuscular HGB Conc 34.2 g/dl (32-36); Mean Corpuscular Volume 87.9 fl (80-100); Mean Platelet Volume 10.6 fl (7.4-10.4); Monocytes Absolute Auto 0.6 K/mm3 (0.1-0.6); Monocytes Percent Auto 7.5 % (2.6-8.5); Neutrophils Absolute Auto 4.2 K/mm3 (1.3-6.7); Platelet Count Result 300 k/mm3 (150-375); Red Blood Count 4.86 M/mm3 (4.2-5.4); Red Cell Distribution Width 12.5 % (11.5-14.5); White Blood Count 7.3 K/mm3 (4.5-10.0)
[2024-01-02 18:57] LABS: Alanine Aminotransferase 17 U/L (6-35); Albumin Level 4.9 g/dL (3.5-5.1); Alkaline Phosphatase 74 U/L (38-126); Anion Gap 8 mmol/L (4-12); Aspartate Amino Transferase 25 U/L (14-36); Bilirubin,Total 0.4 mg/dL (0.2-1.3); Blood Urea Nitrogen 16 mg/dL (7-17); Calcium 9.3 mg/dL (8.4-10.2); Carbon Dioxide 23 mmol/L (22-30); Chloride 105 mmol/L (98-107); Estimated CRCL calculation 104 ml/min; Estimated Glomerular Filt Rate > 60; Glucose 92 mg/dL (65-110); Sodium 136 mmol/L (137-145)
[2024-01-02 19:04] LABS: Partial Thromboplastin Time 29.4 Seconds (22.3-36.8); Prothrombin Time 13.6 Seconds (11.1-14.7)
[2024-01-02 19:07] LABS: Troponin I < 0.012 ng/mL (0.000-0.034)
[2024-01-02 19:08] LABS: D Dimer < 0.27 ug/mL (<0.48)
[2024-01-02 20:16] VITALS: PULSE 67; O2SAT 97
[2024-01-02 20:19] VITALS: BP 128/88; PULSE 64; RESP 18; O2SAT 97
[2024-01-02] MEDS: ACETAMINOPHEN 500 MG TABLET 1000 MG PO (20:21)
[2024-01-02 20:24] VITALS: O2SAT 97
[2024-01-02 21:39] VITALS: BP 135/106; PULSE 66; RESP 13; TEMP 36.6; O2SAT 97
== END 2024-01-02 22:13 | disposition home or self-care (01) ==
PROVIDERS: Physician Assistant; Emergency Provider Emergency Medicine
DX: R00.2 Palpitations (principal)
CPT/HCPCS: 36415; 71046; 80053; 84484; 85025; 85380; 85610; 85730; 93005; 99284; A9270